=== PATIENT | female | born 2000 | race Caucasian/White ===

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

== ENCOUNTER 2022-09-11 16:20 | Emergency (ER) | payer BC, SELFPAY ==
[2022-09-11 16:22] VITALS: BP 144/78; PULSE 104; RESP 16; TEMP 35.8; O2SAT 100; BMI 23.3
--- NOTE | 2022-09-11 16:38 | RAD_ITS ---
INDICATION: Chest pain EXAMINATION/TECHNIQUE: X-RAY - XR Chest 1 View COMPARISON: None FINDINGS: LINES/DEVICES: None. LUNGS: No consolidation, edema or effusion. No pneumothorax. MEDIASTINUM AND CARDIOVASCULAR STRUCTURES: Cardiac silhouette not enlarged. Central airways and mediastinal contour are unremarkable. RAD/Chest 1 View (Portable) IMPRESSION: No radiographic evidence of acute cardiopulmonary disease. Electronically Signed: Francisco German MD at 17:07 EDT ,
[2022-09-11 16:55] VITALS: O2SAT 99
[2022-09-11 17:15] LABS: Absolute Neutrophil Count 3.5 X10^3/uL (2.0-7.7); Basophil# 0.04 X10^3/uL; Basophil% 0.6 % (0-1); Eosinophil# 0.12 X10^3/uL; Eosinophils% 1.9 % (0-5); Hematocrit 40.1 % (37-47); Hemoglobin 13.1 g/dL (12.0-15.0); Mean Corp Hgb Conc 32.7 g/dL (32-36); Mean Corpuscular Hgb 30.6 pg (27.0-32.0); Mean Corpuscular Volume 93.7 fL (81-99); Mean Platelet Vol. 11.1 fl (6.2-12.0); Monocyte# 0.39 X10^3/uL; Monocyte% 6.3 % (0-10); NRBC Flagged by Analyzer 0 % (0-5); Neutrophil # 3.52 X10^3/uL (2.7-7.7); Platelet Count 199 K/mm3 (150-450); RBC Distribution Width CV 12.1 % (11.6-14.6); RBC Distribution Width SD 42.1 fl (35.1-43.9); Red Blood Count 4.28 M/mm3 (4.2-5.4); White Blood Count 6.2 K/mm3 (4.4-11.0)
[2022-09-11 17:36] LABS: Anion Gap 10 (5-15); BUN 14 mg/dL (7-18); BUN/Creat Ratio 19.9 RATIO (10-20); Calcium,Total 9.4 mg/dL (8.5-10.1); Chloride 106 mmol/L (98-107); EST Glomerular Filtration Rate 112 mL/min (>60); Est Glom Filt Rate - Afr Amer 135 mL/min (>60); Estimated Creatinine Clearance 92.08 ml/min; Glucose 82 mg/dL (74-106); Potassium 3.7 mmol/L (3.5-5.1); Sodium Level 141 mmol/L (136-145); Troponin-I HS (w/2H Reflex) < 3 pg/mL (3.0-54.0)
--- NOTE | 2022-09-11 17:36 | ED.VIS.CHEST ---
HPI History of Present Illness Chief Complaint: Palpitations Informant: patient Narrative Narrative: College student here attending classes, she is from [place] which is where her primary care is, she is generally healthy but in the past 5 days or so she has been having hours-long episodes of palpitations, chest pressure, which in turn makes it hard to breathe, but she has not been frankly winded/dyspneic. Some lightheadedness and feeling faint at times but no syncope, and that does not happen every time with this. She does not drink any significant amounts of caffeine and does no other stimulants or drugs. She is on control. She is not a smoker. She states she was evaluated at the [facility], and at the time she was having symptoms, her heartbeat was irregular and in the 120s. PFSH PFSH Medical History no medical history no medical history Home Medications norethindrone 1 mg-ethinyl estradiol 20 mcg (21)-iron 75 mg (7) tablet (06/02 (28)) tab 09/11/22 [History Last Taken Unknown] Allergy/AdvReac Type Severity Reaction Status Date / Time No Known Allergies Allergy Verified 09/11/22 16:21 Surgical History no surgical history no surgical history Social History (Updated 09/11/22 @ 17:[address] Jose Manuel Teague MD) Smoking Status: Never smoker substance use type: does not use ROS ROS ED Constitutional Constitutional ED: Denies chills or fever(s) Eyes Eyes: Denies change in vision or diplopia ENT ENT ED: Denies rhinorrhea or sore throat Cardiovascular Cardiovascular: Reports chest pain, lightheadedness and palpitations Respiratory/Chest Respiratory/Chest: Reports dyspnea; Denies cough Gastrointestinal Gastrointestinal: Denies abdominal pain, diarrhea, nausea or vomiting Genitourinary Genitourinary ED: Denies dysuria or hematuria Musculoskeletal Musculoskeletal: Denies back pain or neck pain Integumentary Denies abscess or rash Neurologic Neurologic: Denies headache(s), paresthesias or weakness Psychiatric Psychiatric: Denies anxiety or suicidal thoughts EXAM Physical Exam Const Vital Signs: 09/11/22 16:22 09/11/22 16:55 09/11/22 17:29 Temperature 96.4 F L Temperature Source Temporal Pulse Rate 104 H Respiratory Rate 16 Respiratory Effort Normal Blood Pressure 144/78 H Blood Pressure Mean 100 Pulse Ox 100 99 Oxygen Delivery Method Room Air Room Air 09/11/22 18:49 09/11/22 19:33 Temperature Temperature Source Pulse Rate 87 82 Respiratory Rate 16 11 L Respiratory Effort Blood Pressure 138/78 H 118/77 Blood Pressure Mean 98 Pulse Ox 99 100 Oxygen Delivery Method Positive well nourished and well developed General Appearance ED: well developed and NAD HEENT Reports moist mucous membranes normocephalic and atraumatic Eyes PERRL and EOMs intact bilaterally Neck full ROM and supple Resp normal respiratory effort and clear to auscultation bilaterally Cardio regular rate, regular rhythm and no murmurs GI non-tender and non-distended Auscultation: normoactive bowel sounds Palpation: soft Back/Spine no CVA tenderness General Back: other FROM Extremity normal to inspection General Extremety ED: Negative for edema, pulses abnormal or tenderness General Extremity: Negative for edema or pulses abnormal Neuro oriented x3, CN's II-XII intact bilaterally and no sensory deficits noted Sensorium / Orientation: awake and alert Motor Exam: strength 5/5 throughout Skin no rashes or lesions noted and no wounds Heart Score History: Moderately Suspicious ECG: Normal Age: </= 45 years Risk Factors: No Risk Factors Troponin: </= Normal Limit Score: 1 MDM MDM MDM Narrative Medical decision making narrative: EG, chest x-ray, labs including troponin all normal, with the exception of a D-dimer which is nonspecifically elevated. Given her symptoms I think it would be reasonable to send her for CTA to rule out pulmonary embolism, this was done, I reviewed the images they appear normal, radiologist agrees and I agree with his interpretation. Patient did not have any recurrent symptoms while she was here, and no telemetry events while on the monitor. Her symptoms are consistent with a supraventricular tachydysrhythmia, it sounds more likely that than ventricular ectopy which is also in the differential diagnosis. At this time she has no symptoms of anything dangerous and her troponin is negative, she takes no prescription medications that could be involved here, except for control. She can continue that since she does not have a venous thromboembolism, we are fixing her with a 48-hour Holter monitor and advising her to follow-up with cardiology here. We discussed reasons to return and she is comfortable with that plan. History & Record Review Discussion w/independent historian: Patient Lab Data Attestation: I reviewed the patient's lab results. Labs: Laboratory Results - last 24 hr 09/11/22 09/11/22 09/11/22 17:00 17:00 17:00 WBC 6.2 RBC 4.28 Hgb 13.1 Hct 40.1 MCV 93.7 MCH 30.6 MCHC 32.7 RDW Std Deviation 42.1 RDW Coeff of Priscila 12.1 Plt Count 199 MPV 11.1 Immature Gran % (Auto) 0.200 Neut % (Auto) 57.0 Lymph % (Auto) 34.0 [place] % (Auto) 6.3 Eos % (Auto) 1.9 Baso % (Auto) 0.6 Absolute Neuts (auto) 3.5 Absolute Lymphs (auto) 2.10 Nucleated RBC % 0 D-Dimer Quant (PE/DVT) 0.74 H* Sodium 141 Potassium 3.7 Chloride 106 Carbon Dioxide 25.0 Anion Gap 10 BUN 14 Creatinine 0.70 Estim Creat Clear Calc 92.08 Est GFR (MDRD) Af Amer 135 Est GFR (MDRD) Non-Af 112 BUN/Creatinine Ratio 19.9 Glucose 82 Calcium 9.4 Troponin I High Sens < 3 L Radiography Chest X-Ray - ED: 1 View, Read by ED Physician and No Infiltrates Diagnostic Testing: Clinical Impression(s) from Imaging Studies Chest X-Ray 09/11/22 16:38 IMPRESSION: No radiographic evidence of acute cardiopulmonary disease. Electronically Signed: Francisco German MD at 17:07 EDT , Chest CTA 09/11/22 18:15 IMPRESSION: Normal CTA chest examination, without a demonstrated pulmonary embolism or arterial dissection. No acute abnormal finding in the chest. Electronically Signed: Francisco German MD at 18:44 EDT , Rhythm Strip Rhythm Strip: Sinus Rhythm Rate: 98 Ectopy: None EKG Initial EKG: Attestation: I personally reviewed and interpreted this EKG as follows: Interpretation: Sinus Rhythm and No Acute Injury Pattern Comments: Normal EKG Prior: No Prior Discharge Plan Triage Chief Complaint: Palpitations ED Provider: Jose Manuel Teague Dx/Rx/DC Orders Clinical Impression: Heart palpitations Instructions: ED Understanding Supraventricular Tachycardia (SVT) Prescriptions: No Action norethindrone-e.estradiol-iron [06/02 (28)] 1 mg-20 mcg (21)/75 mg (7) tablet Label Comments: TAKE 1 TABLET BY MOUTH EVERY DAY Primary Care Provider: Care Physician,No Primary Referrals: Aydin Loyd MD [Med Staff - Active Staff] - 3-5 Days (Call for appointment to be seen by first available practitioner, you want your appointment to be after you turn in the monitor.) NOT,DEFINED [Non-Staff] - Disposition Disposition: Home, Self Care
[2022-09-11 18:05] LABS: D-Dimer Quantitative (DVT/PE) 0.74 FEU/ug/m (0.27-0.49)
--- NOTE | 2022-09-11 18:15 | CT_ITS ---
STUDY: CTA CHEST REASON FOR EXAM: Female, 22 years old. CP, SOB, tachycardia, elevated d-dimer RADIATION DOSAGE (If Supplied By Facility): CTDIvol = ( 4.06 ) mGy, DLP = ( 131.39 ) mGycm TECHNIQUE: The examination was performed with the intravenous administration of IV 75mL [id number]. Post-processing of the angiographic images was performed, with multiplanar reformation and 3D reconstruction. Individualized dose optimization techniques were used for this CT. COMPARISON: Concurrent chest x-ray FINDINGS: Normal enhancement of the main pulmonary artery and right and left pulmonary arteries. Normal enhancement of the bilateral peripheral pulmonary arteries. There is no demonstrated pulmonary embolism. Normal thoracic aorta and visualized great vessels. There is no demonstrated aortic dissection. Normal heart and pericardium. Normal mediastinum. Normal hilar regions. Normal visualized trachea and bronchi. The lungs are well expanded. Normal pulmonary parenchyma. Normal pleura. Normal chest wall structures. Normal thoracic vertebral alignment. No acute abnormal finding the partially visualized upper abdomen. CT/CTA Chest W/WO Contrast IMPRESSION: Normal CTA chest examination, without a demonstrated pulmonary embolism or arterial dissection. No acute abnormal finding in the chest. Electronically Signed: Francisco German MD at 18:44 EDT ,
[2022-09-11 18:49] VITALS: BP 138/78; PULSE 87; RESP 16; O2SAT 99
[2022-09-11 19:33] VITALS: BP 118/77; PULSE 82; RESP 11; O2SAT 100
== END 2022-09-11 20:12 | disposition home or self-care (01) ==
PROVIDERS: Emergency Provider Emergency Medicine; Visit Provider Emergency Medicine
DX: R00.2 Palpitations (principal); R07.9 Chest pain, unspecified
CPT/HCPCS: 71045; 71275; 80048; 84484; 85025; 85379; 93005; 99284; Q9967; A4216

== ENCOUNTER → 2022-09-11 | Outpatient (CLI) | payer BC, SELFPAY | END | disposition home or self-care (01) | PROVIDERS: Referring Provider Internal Medicine Cardiovascular Disease; Visit Provider Emergency Medicine | DX: R00.2 Palpitations (principal) | CPT/HCPCS: 93225; 93226 ==